=== PATIENT | male | born 1950 | race Caucasian/White ===

== ENCOUNTER 2019-01-05 01:28 | Day surgery (SDC) | payer MEDICARE, OTHER ==
[~2019-01-05] VITALS: Ht 175.3 cm; Wt 112.0 kg
[~2019-01-05 01:28] MED LIST: ALBU8.5H IH; AMLO-125 PO; ASPI1TAB35 PO; ATOR40TA24 PO; CEP500 PO; HYDR-2966 PO; LISI-374 PO; LOR5/325 PO; METO-233 PO; VITAMINS
[2019-01-05] MEDS ORDERED: MINERAL OIL LIGHT 10 ML VIAL ONE (06:58)
[2019-01-05] MEDS ORDERED: NEOMYCIN/POLYMYX/BACITR 30 GM TP ONE (06:58)
[2019-01-05 08:45] VITALS: BP 155/97
[2019-01-05] MEDS ORDERED: ceFAZolin(*) 1 GM VIAL 1 GM, GENTAMICIN(*) 80 MG/2 ML VIAL 60 MG in NS 0.9% IRRIGATION ... IR ONE (09:00)
[2019-01-05] MEDS ORDERED: fentaNYL CITR 100 MCG/2 ML AMP ONE ×4 (09:02→11:59)
[2019-01-05] MEDS ORDERED: ONDANSETRON 4 MG/2 ML VIAL ONE (09:02)
[2019-01-05] MEDS ORDERED: DEXAMETHASONE SOD 4 MG/ML VIAL ONE (09:02)
[2019-01-05] MEDS ORDERED: PROPOFOL EMUL(*) 10MG/ML 20 ML 20 ML ONE (09:02)
[2019-01-05] MEDS ORDERED: LIDOCAINE MPF 1% 5 ML VIAL ONE (09:02)
[2019-01-05] MEDS ORDERED: NORMOSOL R SOLN(*) 1000 ML BAG 1,000 ML IV PRN (09:20)
[2019-01-05] MEDS ORDERED: cefTRIAXone(*) 2 GM VIAL 2 GM in NS(*) 0.9% 100 ML MINI-BAG 100 ML IVPB ONE (09:20)
[2019-01-05] MEDS ORDERED: MIDAZOLAM 2 MG/2 ML VIAL IVP PRN (09:20)
[2019-01-05] MEDS ORDERED: FAMOTIDINE 20 MG TAB PO ONE (09:20)
[2019-01-05] MEDS ORDERED: LIDOCAINE/SOD BICARB 8.4% SYR ID ONE (09:20)
[2019-01-05] MEDS ORDERED: KETAMINE HCL-NS 50 MG/5 ML SYR ONE (09:35)
--- NOTE | 2019-01-05 09:45 | NUR ---
[address] Beltrán that Pt drank 8 ounces of water at 0830. [facility] to proceed.
[2019-01-05] MEDS ORDERED: GENTAMICIN 80 MG/2 ML VIAL ONE (10:18)
--- NOTE | 2019-01-05 12:18 | OPERATIVE REPORT 1 ---
EVENT DATE: January 05, 2019 SURGEON: Jayce Gutiérrez MD ANESTHESIOLOGIST: Silverio Beltrán MD ANESTHESIA: General. PREOPERATIVE DIAGNOSIS 1. Phimosis. 2. Probable glandular adhesions. POSTOPERATIVE DIAGNOSIS 1. Phimosis. 2. Probable glandular adhesions. The adhesions were stuck circumferentially around the moody and very dense and tenacious. PROCEDURE PERFORMED 1. Dorsal slit. 2. Lysis of tenacious, dense glandular and coronal adhesions. 3. Plastic reconstruction of penile and mucosal skin. 4. Circumcision. DESCRIPTION OF PROCEDURE Under general anesthetic the patient was prepped and draped in the supine position. At the time of the prep, the foreskin was tight and phimotic as noted preoperatively. Dorsal slit was performed back to the moody. Dense, tenacious coronal, proximal glandular adhesions were encountered. Approximately 15 to 20 minutes was used to free up the adhesions so the glands could be properly prepped and treated. This was subsequently accomplished. The patient was then prepped and draped. The ventral skin was incised down to the frenulum. The inter-median skin and mucosa was trimmed. The mucosa was trimmed down to the moody. There appeared to be some take-down of the skin with the lysis of the glandular adhesions dorsally. This was reapproximated with 4-0 Chromic Cat-Gut suture. The mucosal skin was further trimmed and appeared to be appropriately reconstructed and trimmed. The skin was trimmed. The dorsal mucosa and skin were secured and tagged. The ventral skin and mucosa was reapproximated. The inter-median tissue bilaterally was approximated with interrupted 3-0 Chromic Cat-Gut sutures circumferentially. The bleeding had been controlled prior to the closure. The estimated blood loss is a few cc. The circumcision and the reconstruction appeared to be satisfactorily performed. The patient tolerated the procedure satisfactorily and returned to the recovery room in satisfactory condition. This is a 68-year-old white male complaining of phimosis. He has had the problem for approximately 5 years with difficulty retracting and cleaning the skin. The patient requests evaluation and treatment. That has been accomplished. See operative note for details. The patient will be ready for discharge home when alert and function to force fluids, 2 liters per day. Activities are restricted to careful ambulation. He is to continue his usual medications. A copy of instructions were given to the patient. Follow up in a week in the clinic on the January,. He is to call for an appointment. He is to continue his usual medications. Ice will be applied in the recovery room and he will follow that up at home as needed. The patient will be discharged home on Cipro, Pepcid, Motrin and Tylenol #3 therapy in addition to his usual medications. PATRICIA
[2019-01-05] MEDS ORDERED: CIPR-344 PO (12:23)
[2019-01-05] MEDS ORDERED: FAMO20TA28 PO (12:24)
[2019-01-05] MEDS ORDERED: IBUP800T37 PO (12:25)
[2019-01-05] MEDS ORDERED: ACET-3017 PO (12:26)
[2019-01-05 12:48] VITALS: BP 119/95
[2019-01-05] MEDS ORDERED: ACETAMIN/CODEINE #3 300-30 MG PO ONE (13:00)
[2019-01-05 13:16] VITALS: BP 125/76
[2019-01-05 13:26] VITALS: BP 124/66
[2019-01-05 13:28] VITALS: BP 123/74
--- NOTE | 2019-01-05 14:52 | NUR ---
1400 SBAR REPORT WAS RECEIVED FROM DAVIS RN. PATIENT REMAINS IN SITTING IN BED. HE STATES HE IS DOING WELL. HE IS ON 0.5 LITERS NASAL CANNULA. 1445 EXPLAINED TO PATIENT HE MAY HAVE TO GO HOME ON . HE VERBALIZED UNDERSTANDING. WILL ORDER AEROBIKA FOR PATIENT.
--- NOTE | 2019-01-05 16:28 | NUR ---
PATIENT O2 WAS DROPPED DOWN TO 77% ON ROOM AIR. AFTER TALKING WITH SEVERAL O2 COMPANIES WE WERE ABLE TO FINALLY SETTLE ON [facility]. THEY STATED THEY WERE IN [place] AND WOULD NOT BE ABLE TO ARRIVE FOR 1.5 HOURS. PATIENT STATED HE WAS OK TO HAVE TO WAIT. WENT TO FILL PRESCRIPTIONS. PATIENT CONTINUES TO SIT IN BED AT THIS TIME. DISCUSSED IMPORTANCE OF USING THE O2 AT HOME ESPECIALLY DURING THE NIGHT AND HE SHOULD USE O2 WHILE HE CONTINUES HIS PAIN MEDICATION. HE VERBALIZED UNDERSTANDING.
--- NOTE | 2019-01-05 16:55 | NUR ---
PATIENT STATED HIS INCISION WAS BEGINNING TO HURT SLIGHTLY REFILLED PATIENTS ICEPACK AND ALSO APPLIED NEW GAUZE TO SCROTAL AREA. HE HAS A SMALL AMOUNT OF BLEEDING IN THE AREA AND GAUZE. 1510 PATIENT STATED THE ICE WAS HELPING WITH PAIN AND IT IS BEGINNING TO LESSEN UP.
--- NOTE | 2019-01-05 17:32 | NUR ---
1729 PATIENT WAS ABLE TO VOID WITHOUT DIFFICULTIES. PATIENT CONTINUES TO REST ON THE SIDE OF THE BED.
--- NOTE | 2019-01-05 18:01 | NUR ---
1800 [facility] WAS IN TO SEE PATIENT AND EXPLAIN HOME O2
--- NOTE | 2019-01-05 18:10 | NUR ---
PATIENT WAS TAKEN OUT VIA WHEELCHAIR SEE. DISCHARGE ASSESSMENT.
== END 2019-01-05 13:05 | disposition home or self-care (01) ==
LOC: OR 01:28
DX: N47.1 Phimosis (principal); N48.1 Balanitis; Q55.8 Other specified congenital malformations of male genital organs; I10 Essential (primary) hypertension; K21.9 Gastro-esophageal reflux disease without esophagitis; J44.9 Chronic obstructive pulmonary disease, unspecified; E78.5 Hyperlipidemia, unspecified; Z79.899 Other long term (current) drug therapy
CPT/HCPCS: 54161; 94667; A9270; J0696; J1100; J1580; J2001; J2405; J2704; J3010; J3490